=== PATIENT | female | born 1965 | race Caucasian/White ===

== ENCOUNTER 2018-09-30 05:57 | Day surgery (SDC) | payer OTHER ==
[~2018-09-30] VITALS: Ht 154.9 cm; Wt 75.3 kg
[2018-09-30] MEDS ORDERED: VITAMIN D PO (07:21)
[2018-09-30] MEDS ORDERED: LIPITOR PO (07:21)
[2018-09-30 07:22] VITALS: Ht 154.9 cm; Wt 75.3 kg
[2018-09-30 07:50] VITALS: BP 142/66; PULSE 69; RESP 18
[2018-09-30] MEDS ORDERED: FENTAnyl 50 MCG/ML VIAL ONE (08:47)
[2018-09-30] MEDS ORDERED: MIDAZOLAM 1 MG/ML 2 ML INJ ONE ×3 (08:47)
[2018-09-30 09:08] VITALS: BP 144/62; RESP 20
== END 2018-09-30 09:54 | disposition home or self-care (01) ==
LOC: GIL 05:57
PROVIDERS: ATTEND Internal Medicine Gastroenterology
DX: Z12.11 Encounter for screening for malignant neoplasm of colon (principal); K29.30 Chronic superficial gastritis without bleeding; K64.8 Other hemorrhoids; K21.9 Gastro-esophageal reflux disease without esophagitis
CPT/HCPCS: 43239; 45378; 88305; 88312; J2250; J3010; Z7610